=== PATIENT | male | born 1985 | race Caucasian/White ===

== ENCOUNTER 2023-05-22 08:20 | Day surgery (SDC) | payer OTHER, SELFPAY ==
[2023-05-15 08:23] VITALS: BMI 39.0
--- NOTE | 2023-05-22 08:35 | P.HP_ITS ---
History of Present Illness History of Present Illness Date Patient Seen: 05/22/23 Time Patient Seen: 08:35 Chief complaint: Open Umbilical Hernia Repair w/mesh Narrative: Zheng a 38-year-old man who has an umbilical hernia. See office note from April for details. [facility] Surgical History (Updated 05/15/23 @ 08:27 by Jenni Calero RN) No history of previous surgery Social History household members: spouse Smoking Status: Former smoker alcohol intake: current Meds Home Medications and Allergies Home Medications Medication Instructions Recorded Confirmed Type isotretinoin 40 mg capsule 40 mg PO BID 04/09/23 04/09/23 History omeprazole 20 mg tablet,delayed 20 mg PO DAILY 04/09/23 04/09/23 History release Allergies Allergy/AdvReac Type Severity Reaction Status Date / Time No Known Drug Allergies Allergy Unverified 04/09/23 09:31 Exam Narrative Exam Narrative: 3 cm reducible umbilical hernia Assessment & Plan Assessment and plan (1) Umbilical hernia: Qualifiers: Obstruction and gangrene presence: without obstruction or gangrene Qualified Code(s): K42.9 - Umbilical hernia without obstruction or gangrene Status: Acute Plan We reviewed the risks and benefits of open umbilical hernia repair with mesh and he would like to proceed.
--- NOTE | 2023-05-22 08:35 | SUR.OPER ---
Supine on padded OR bed, head on pillow, arms secured on padded arm boards at <90 degrees abduction, legs uncrossed, safety belt at thigh, tape over blanket over lower legs.
[2023-05-22 08:49] VITALS: PULSE 68; RESP 16; TEMP 36.7; O2SAT 96; BMI 39.0
[2023-05-22] MEDS: LACTATED RINGERS 1,000 ML 42 ML IV (08:56)
[2023-05-22] MEDS: CEFAZOLIN 2 GM/100 ML PREMIX 100 ML IV (09:05)
[2023-05-22] MEDS: BUPIVACAINE 0.5% (PF) 30 ML, EPINEPHrine 0.15 MG INJ (09:49)
--- NOTE | 2023-05-22 10:00 | PM.OP.1 ---
Operative Date/Time/Diagnoses Date of procedure: 05/22/23 Time of procedure: 10:00 Pre-op diagnosis: Umbilical hernia Post-op diagnosis: same Procedure & Clinicians Procedure: Open umbilical hernia repair with mesh Same procedure as scheduled: Yes Surgeon: Gilmar Ahn Anesthesia Type: General Operative Notes Procedure in detail: Ancef was administered. The patient was brought to the operating room, placed on the table in the supine position and general endotracheal anesthesia was induced. The abdomen was prepped and draped in the usual fashion. A time-out was performed. A 5 cm curvilinear incision was made inferior to the umbilicus. The hernia sac was dissected free from the surrounding subcutaneous adipose tissue. The sac was dissected off the umbilical stalk using a combination of cautery, sharp and blunt dissection. The hernia sac was dissected free from the fascial ring and allowed to drop back down into the abdomen. The fascia was then closed transversely with multiple interrupted 0 Ethibond sutures. The subcutaneous adipose tissue was cleared off of the anterior sheath circumferentially about 2 cm in each direction. A piece of polypropylene mesh was trimmed to fit over the fascial closure and secured with Tisseel. Once the Tisseel was dried the umbilical skin was tacked down to the deep subcutaneous adipose tissue with a single 3-0 Vicryl stitch. There was a small buttonhole defect in the umbilical skin which was closed with a [id number] 3-0 Vicryl from the inside and running 4-0 Monocryl on the outside. The skin incision was closed with multiple interrupted 3-0 Vicryl dermal sutures followed by a running 4 Monocryl subcuticular closure. Steri-Strips were applied and an abdominal binder was applied. EBL: 10 mL Post-operative Condition: stable Disposition: PACU
[2023-05-22 10:04] VITALS: BP 137/85; PULSE 59; RESP 12; TEMP 36.1; O2SAT 97
--- NOTE | 2023-05-22 10:08 | SUR.PHASEI ---
Received to PACU after general anesthesia. Airway patent, self maintained. Report from MIGDALIA Hager and Michael Bland.
[2023-05-22 10:09] VITALS: BP 127/78; PULSE 58; RESP 10; O2SAT 94
[2023-05-22 10:14] VITALS: BP 133/75; PULSE 57; RESP 12; O2SAT 97
[2023-05-22] MEDS: OXYCODONE/ACETAMINOPHEN 5/325 TABLET 1 TAB PO (10:18)
[2023-05-22 10:19] VITALS: BP 140/87; PULSE 59; RESP 14; TEMP 36.2; O2SAT 94
[2023-05-22 10:24] VITALS: PULSE 56; RESP 14; TEMP 36.2; O2SAT 96
== END 2023-05-22 10:49 | disposition home or self-care (01) ==
PROVIDERS: Referring Provider Surgery; Visit Provider Surgery
PROC: (CPT 49593; principal; 2023-05-22 09:45)
DX: K42.9 Umbilical hernia without obstruction or gangrene (principal)
CPT/HCPCS: 49593; J0171; J0330; J0690; J1100; J1885; J2250; J2405; J2704; J3010

== ENCOUNTER 2023-06-11 07:58 | Day surgery (SDC) | payer OTHER, SELFPAY ==
[2023-06-11] MEDS: LACTATED RINGERS 1,000 ML 100 ML IV (08:27)
[2023-06-11 08:33] VITALS: BP 126/83; PULSE 71; RESP 16; TEMP 36.4; O2SAT 97; BMI 38.0
--- NOTE | 2023-06-11 09:34 | PM.HP.1 ---
History of Present Illness History of Present Illness Date Patient Seen: 06/11/23 Chief complaint: EGD & Colonoscopy Narrative: Family history of colon cancer in both mother and father need for screening colonoscopy. Also severe GERD need for screening upper endoscopy to rule out Núñez's esophagus. [facility] Surgical History No history of previous surgery Social History household members: spouse Smoking Status: Former smoker alcohol intake: current Meds Home Medications and Allergies Home Medications Medication Instructions Recorded Confirmed Type isotretinoin 40 mg capsule 40 mg PO BID 04/09/23 06/11/23 History omeprazole 20 mg tablet,delayed 20 mg PO DAILY 04/09/23 06/11/23 History release Allergies Allergy/AdvReac Type Severity Reaction Status Date / Time No Known Drug Allergies Allergy Verified 06/11/23 08:23 Exam Vital Signs (past 8 hours): - 06/11/23 08:33 Temperature 97.5 F L Pulse Rate 71 Respiratory Rate 16 Blood Pressure 126/83 Pulse Oximetry 97 Oxygen Delivery Method Room Air Oxygen Delivery Method Room Air Narrative Exam Narrative: Oropharynx free of lesions Chest clear to auscultation percussion Cardiac exam reveals no S3 or murmur Assessment & Plan Assessment & Plan narrative: Strong family history of colon cancer need for for screening colonoscopy. Risks, benefits, alternatives have been explained Severe GE reflux rule out Núñez's esophagus
--- NOTE | 2023-06-11 09:35 | PM.OP.EC ---
Operative Date/Time/Diagnoses Date of procedure: 06/11/23 Procedure & Clinicians Study performed: EGD and colonoscopy Indications: Family history of colon cancer in 2 first-degree relatives and severe GE reflux Surgeon: Christina Quigley Procedure Notes Procedure in detail: After informed consent was obtained the patient was placed in left lateral decubitus position. The video upper scope placed into the oropharynx and with the patient's help swelled into the esophagus. The esophagus stomach and duodenum were carefully examined. On withdrawal, retroflexed view the GE junction was performed. The scope was removed. The patient tolerated procedure well. The colonoscope was then substituted. This was placed the rectum and slowly advanced cecum. Preparation was good. On slow withdrawal mucosa was carefully examined. The scope was removed. The patient tolerated procedure well. Blood loss none Complications none Sedation mac Findings EGD 1. Completely normal esophagus with a very regular squamocolumnar junction 2. Normal stomach 3. Normal duodenal bulb and sweep Colonoscopy 1. Normal colonoscopy to cecum Jaxson should continue his current medications for his reflux. He does not need any routine follow-up EGD Colonoscopy should be repeated in 5 years.
[2023-06-11 10:00] VITALS: BP 99/65; PULSE 92; RESP 12; TEMP 36.3; O2SAT 93
[2023-06-11 10:05] VITALS: BP 106/70; PULSE 85; RESP 12; O2SAT 93
[2023-06-11 10:10] VITALS: BP 106/64; PULSE 67; RESP 14; O2SAT 94
[2023-06-11 10:15] VITALS: BP 124/83; PULSE 66; RESP 16; O2SAT 94
[2023-06-11 10:29] VITALS: BP 126/83; PULSE 71; RESP 18; O2SAT 97
== END 2023-06-11 10:31 | disposition home or self-care (01) ==
PROVIDERS: Referring Provider Internal Medicine Gastroenterology; Visit Provider Internal Medicine Gastroenterology
PROC: 0DJ08ZZ Inspection of Upper Intestinal Tract, Via Natural or Artificial Opening Endoscopic (ICD-10-PCS; CPT 43235; principal; 2023-06-11 09:30)
PROC: 0DJD8ZZ Inspection of Lower Intestinal Tract, Via Natural or Artificial Opening Endoscopic (ICD-10-PCS; CPT 45378; 2023-06-11 09:30)
DX: Z12.11 Encounter for screening for malignant neoplasm of colon (principal); Z80.0 Family history of malignant neoplasm of digestive organs; K21.9 Gastro-esophageal reflux disease without esophagitis
CPT/HCPCS: 45378; 43235

== ENCOUNTER → 2023-11-27 07:20 | Outpatient (CLI) | payer OTHER, SELFPAY ==
--- NOTE | 2023-11-27 07:24 | DI.RAD.S_ITS ---
PROCEDURE: XR CHEST 2V INDICATIONS: Shortness of breath TECHNIQUE: 2 views of the chest were acquired. COMPARISON: None. FINDINGS: Surgical changes and devices: None. Lungs and pleura: Mild bilateral perihilar bronchial wall thickening. No focal pulmonary consolidation. No pleural effusions or pneumothorax. Mediastinum: Mediastinal contours are normal. Heart size is normal. Bones and chest wall: No suspicious bony abnormalities. Soft tissues appear unremarkable. Mild degenerative changes of the spine. IMPRESSION: Mild bilateral perihilar bronchial wall thickening suggestive of reactive airways disease versus viral pneumonia. No focal pulmonary consolidation. Dictated by: Fidel Westbrook M.D. on 11/27/2023 at 17:11 Approved by: Fidel Westbrook M.D. on 11/27/2023 at 17:12
== END ==
PROVIDERS: Referring Provider Chiropractor; Visit Provider Chiropractor
DX: R06.02 Shortness of breath (principal)
CPT/HCPCS: 71046